=== PATIENT | female | born 1985 | race Caucasian/White ===

== ENCOUNTER 2017-04-12 05:36 | Inpatient (IN) ==
[2017-04-12] MEDS ORDERED: BUTORPHANOL 2 MG/ML VIAL IV PRN (05:46)
[2017-04-12] MEDS ORDERED: ONDANSETRON 4 MG/2 ML VIAL IV PRN ×2 (05:46→11:44)
[2017-04-12] MEDS ORDERED: LACTATED RINGERS 1,000 ML IV SCH (06:00)
[2017-04-12] MEDS ORDERED: OXYTOCIN/LR 20 UNIT/1,000 ML BAG IV SCH (06:00)
[2017-04-12 06:20] LABS: Basophils % 0.5 % (0.0-0.8); Eosinophils # 0.1 10*3/uL (0.0-0.87); Eosinophils % 0.7 % (0.00-10.9); Hemoglobin 11.6 GM/DL (12.0-16.0); Immature Granulocytes % 0.8 %; Immature Granulocytes Absolute 0.07 #; Lymphocytes # 1.3 10*3/uL (1.4-4.0); Lymphocytes % 16.2 % (21.3-54.2); Mean Corpuscular HGB Conc 34.1 GM/DL (32-36); Mean Corpuscular Hemoglobin 30 PG (27-34); Mean Platelet Volume 10.1 FL (9.6-12.0); Monocytes # 0.4 10*3/uL (0.11-0.8); Monocytes % 4.7 % (1.7-12.7); Neutrophils # 6.4 10*3/uL (1.4-7.4); Neutrophils % 77.1 % (38.7-73.9); Platelet Count 164 T/CUMM (130-400); Red Blood Count 3.82 MC/CUMM (3.8-5.5); Red Cell Distribution Width 14.1 % (9.3-17.3); White Blood Count 8.3 T/CUMM (4-12)
--- NOTE | 2017-04-12 06:53 | OB/GYN History & Physical ---
History of Present Illness Chief complaint: at 40 weeks elective induction History of present illness: Ms. Sheppard is a 31 year old female 2 para 1 at 40 weeks estimated gestational age with history of mitral valve replacement who gets SBE prophylaxis with favorable Banerjee score with ultrasound estimated weight of 7 lbs. 11 oz. done last week, confirmed vertex with normal SERA and adequate clinical pelvimetry admitted for elective induction. Home Medications Medication Instructions Recorded Confirmed Type No122/Iron/Folic Acid 1 tablet PO DAILY 03/22/17 04/12/17 History [ Multi Tablet] Allergies Allergy/AdvReac Type Severity Reaction Status Date / Time No Known Allergies Allergy Verified 03/22/17 14:04 12 point system: reviewed and no additional remarkable complaints except as stated Medical,Surgical,& Family Hx - Medical History Cardio: History of: Cardiovascular Problems (PROSTETHIC MITRAL VALVE) Reproductive: No history of: Ectopic , Complication - Surgical History Cardiac Surgeries: Sugical HX of: Cardiac Surgery (MITRAL VALVE) Reproductive Surgeries: Patient denies;: Section - Family History Family History: Reports;: Family Cancer (MGM-BREAST), Family Diabetes (MGM), Family Hypertension (MGM) Denies;: Family Anesthesia Reaction, Family Heart Disease, Family Hematology , Family Psychiatric Problems, Family Stroke, Additional Family History - Social History Smoking Status: Never smoker Frequency of Alcohol Use: None Type of Drug Use: None 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 - Constitutional Vitals: Vital Signs Temp Pulse Resp BP Pulse Ox 04/12/17 05:41 98.3 F 97 H 18 122/81 97 General appearance: normal weight, no acute distress - Head Head exam: Present: normal inspection, normocephalic, atraumatic - Neck Neck exam: Present: normal inspection - Breast Breasts: as per HPI Menstruation: as per HPI - Cardiovascular Cardiovascular exam: Present: regular rate and rhythm - GI/Abdominal GI/Abdominal exam: Present: normal bowel sounds - Extremities Exam Extremities exam: Present: normal inspection, normal capillary refill - Back Exam Back exam: Present: normal inspection - Neurological Exam Neurological exam: Present: alert, oriented X3 - Psychiatric Psychiatric exam: Present: normal affect, normal mood - Skin Skin exam: Present: normal color, warm Assessment and Plan (1) 40 weeks gestation of Status: Acute Current Visit: Yes (2) Elective induction of labor planned Status: Acute Current Visit: Yes (3) History of mitral valve replacement Status: Acute Current Visit: Yes Results - Labs CBC & BMP: 04/12/17 06:08
[2017-04-12] MEDS: AMPICILLIN INJ 2,000 MG in SODIUM CHLORIDE 0.9% 100 ML IV SCH ×3 (07:06→18:38)
[2017-04-12] MEDS ORDERED: FAMOTIDINE 20 MG/2 ML VIAL IV ONE (07:48)
[2017-04-12] MEDS ORDERED: LACTATED RINGERS 1,000 ML IV ONE (07:48)
[2017-04-12] MEDS ORDERED: ePHEDrine 50 MG/ML AMP IV PRN (07:48)
[2017-04-12] MEDS ORDERED: CITRIC ACID/SODIUM CITRATE 30 ML UDCUP PO ONE (07:48)
[2017-04-12] MEDS ORDERED: PROMETHAZINE 25 MG/1 ML VIAL IM ONE (07:48)
[2017-04-12] MEDS ORDERED: hydrOXYzine HCL 25 MG/1 ML VIAL IM PRN (07:48)
[2017-04-12] MEDS ORDERED: fentaNYL 2 MCG/ROPIV 0.2% EPID 150 ML EPIDURAL SCH (07:48)
[2017-04-12] MEDS ORDERED: diphenhydrAMINE 50 MG/1 ML VIAL IV PRN (07:48)
[2017-04-12] MEDS ORDERED: ALBUTEROL 2.5 MG/3 ML NEB RESP TX ONE (08:51)
[2017-04-12] MEDS ORDERED: FUROSEMIDE 40 MG/4 ML VIAL IV ONE ×2 (09:03→20:57)
--- NOTE | 2017-04-12 09:33 | XRay Report ---
Exam: XR chest 1V portable Date: 04/12/2017 8:58 AM Indication: Shortness of breath wheezing Comparison: None Technical: AP portable Findings: Cardiac valve replacement surgical changes are present. Atelectatic change present with pleural diaphragmatic reaction the right base and tiny low volume effusions suspected. Oxygen tubing superimposes exam. No pneumothorax. Heart is normal in size. Mild dextroscoliotic curve Impression: 1. Status post valve replacement surgical changes 2. Low volume effusions and pleural diaphragmatic reaction in the right base PROCEDURE INTERPRETED AT [facility] [place] DEPARTMENT OF RADIOLOGY Final Report Signed by: Dr. Nate Gonzalez
[2017-04-12] MEDS ORDERED: OXYTOCIN 40 UNIT in LACTATED RINGERS 1,000 ML IV ONE (10:00)
[2017-04-12] MEDS ORDERED: oxyCODONE/ACETAMINOPHEN 5-325 MG TABLET PO PRN ×2 (11:44)
[2017-04-12] MEDS ORDERED: LANOLIN 50% CREAM 0.3 OZ TUBE TOP PRN (11:44)
[2017-04-12] MEDS ORDERED: HYDROCORTISONE 2.5% RECTAL CREAM 30 GM TUBE TOP PRN (11:44)
[2017-04-12] MEDS ORDERED: ACETAMINOPHEN 325 MG TABLET PO PRN (11:44)
[2017-04-12] MEDS ORDERED: BISACODYL 10 MG SUPP RECTAL PRN (11:44)
[2017-04-12] MEDS ORDERED: RHO(D) IMMUNE GLOBULIN 300 MCG SYRINGE IM ONE (11:44)
[2017-04-12] MEDS ORDERED: MEASLES/MUMPS/RUBELLA VACCINE 0.5 ML VIAL SUBCUT ONE (11:44)
[2017-04-12] MEDS ORDERED: BENZOCAINE 20%/MENTHOL 0.5% SPRAY 56 GM CAN TOP PRN (11:44)
[2017-04-12] MEDS ORDERED: DIPH/TET/ACEL PERT BOOSTER VACCINE 0.5 ML VIAL IM ONE (11:44)
[2017-04-12] MEDS ORDERED: WITCH HAZEL PADS 100/JAR TOP PRN (11:44)
--- NOTE | 2017-04-12 11:44 | OB/GYN Progress Note ---
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 Painting dictating vaginal delivery And in LDR environment under sterile conditions, the patient progressed to completely dilated. She was allowed to push and under [epidural] anesthesia had a normal spontaneous vaginal delivery of a live born [male] unweighed Apgars pending over a first-degree midline tear. The 's nose and oropharynx were bulb and DeLee suctioned, and the infant had spontaneous cry after delivery. The cord was doubly clamped and cut and the infant was handed over to the pediatric team for care. Cord blood was obtained the placenta delivered spontaneously intact and IV Pitocin was done. There were no cervical tears. There were no periurethral tears. Estimated blood loss was 250 mL. First degree midline tear was repaired with 2-0 Monocryl suture in usual fashion under epidural anesthesia without complication there were no complications. The bladder was emptied using a catheter prior to delivery. All sponge needle and instrument counts were correct -3 at the end of the delivery. The was taken to nursery in stable condition During the course the patient's labor and following her bolus for epidural patient began having coughing spells and on auscultation was noted to have bilateral rales. Lasix was ordered and a shielded abdomen PA chest x-ray. Pulmonary medicine was consulted. Dr. Haq is also been consulted and a cardiac echocardiogram is been ordered. 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
--- NOTE | 2017-04-12 13:25 | Event Note ---
Tiffany is 31 years old and is 40 weeks and came in for the delivery. She has had a previous mitral valve replacement in the past but has not been having any breathing problems. This morning she was a little short of breath and coughing after getting some fluids. She was given some Lasix and diuresed well. She had her delivery without any problems. She is feeling much better now. She is not having any shortness of breath at all. Her lungs sound clear now. At this point she is quite stable. I doubt she will have any further problems but I will be available as needed. Thanks
--- NOTE | 2017-04-12 14:09 | ECHO Report ---
Tiffany hSeppard Exam Date: 04/12/2017 11:24 Referring Physician: Technologist: Nancy Baker RDCS Age: 31 Ht (in): 64 Wt (lb): 160 Gender: F Exam Location: [facility] Echo Indications: 40 week gestation, hx MVR 2007 BP: 121 / 80 HR: 74 Rhythm: Sinus Technical Quality: Fair IMPRESSIONS Normal left ventricular cavity size. Left ventricular ejection fraction is estimated at 60 %.Septal hypokinesis. Normal right ventricular size and systolic function. The right atrium is normal in size. Moderately increased left atrial size. Prosthetic mitral valve mean gradient is 18 mmHg at a heart rate of 74 bpm. Calculated MVA .98cm 2,consistent with severe prosthetic mitral valve stenosis. Morphologically normal aortic valve without significant sclerosis or stenosis. No aortic valve regurgitation. Mild tricuspid valve regurgitation. PAP40 mmHG. There is no pulmonic regurgitation. Normal pericardium without effusion. Normal ascending aorta dimension. MEASUREMENTS (Male / Female) Normal Values 2D ECHO LV Diastolic Diameter PLAX 4.2 cm 4.2 - 5.9 / 3.9 - 5.3 cm LV Systolic Diameter PLAX 2.5 cm LV Fractional Shortening PLAX 40.8 % IVS Diastolic Thickness 0.8 cm 0.6 - 1.0 / 0.6 - 0.9 cm LVPW Diastolic Thickness 0.8 cm 0.6 - 1.0 / 0.6 - 0.9 cm RV Internal Dim ED PLAX 2.1 cm Aortic Root Diameter 2.7 cm LA Systolic Diameter LX 3.7 cm 3.0 - 4.0 / 2.7 - 3.8 cm DOPPLER TR Peak Velocity 262.0 cm/s TR Peak Gradient 27.5 mmHg FINDINGS Left Ventricle Normal left ventricular cavity size. Normal left ventricular wall thickness. Left ventricular ejection fraction is estimated at 60 %. Right Ventricle Normal right ventricular size and systolic function. Right Atrium The right atrium is normal in size. Left Atrium Moderately increased left atrial size. Mitral Valve Prosthetic mitral valve mean gradient is 18 mmHg at a heart rate of 74 bpm.V max2.8 m/s. Calculated MVA .98cm 2,consistent with severe prosthetic mitral valve stenosis.Trivial MR Aortic Valve Morphologically normal aortic valve without significant sclerosis or stenosis. No aortic valve regurgitation. Tricuspid Valve Morphologically normal tricuspid valve. Mild tricuspid valve regurgitation. PAP40 mmHG. Pulmonic Valve Morphologically normal pulmonic valve without significant stenosis. There is no pulmonic regurgitation. Pericardium Normal pericardium without effusion. Aorta Normal ascending aorta dimension. Prosper Gallegos (Electronically Signed) Final Date: 12 April 2017 14:08
--- NOTE | 2017-04-12 16:45 | Cardiology Consult Note ---
Assessment and Plan (1) Shortness of breath Status: Acute Assessment and plan: This is improved with diuresis, and clinically her lung exam is improved. It may be somewhat iatrogenic with IV fluid administration, although we will need to reassess her valvular function and overall cardiac function. Current Visit: Yes (2) 40 weeks gestation of Status: Resolved Current Visit: Yes (3) Elective induction of labor planned Status: Resolved Current Visit: Yes (4) History of mitral valve replacement Status: Chronic Current Visit: Yes History of Present Illness - Data of Consult Patient: new to practice Consult date: 04/12/17 Requesting Physician: Jose Painting - Consult Narrative Reason for consult: SOB History of present illness: Ms. Sheppard is a 31 year old female with a history of bioprosthetic mitral valve replacement in 2008 secondary to severe mitral regurgitation, presumably from a mitral valve prolapse. She has [facility], and received the bioprosthetic valve with anticipation of childbearing. She was admitted to the hospital for planned induction of her second child, which overall occurred uneventfully. The baby is in good health. She was administered copious IV fluids in association with her epidural, and she had worsening shortness of breath. She is observed as having had crackles in her bilateral lungs, but she has been diuresed by the time I have examined her. She does acknowledge over the preceding few weeks she was having slightly worsening dyspnea. She has not been expressing any peripheral edema. She does not experience chest pain. CC: Criss Scott - Home Medications and Allergies Home Medications: Home Medications Medication Instructions Recorded Confirmed Type No122/Iron/Folic Acid 1 tablet PO DAILY 03/22/17 04/12/17 History [ Multi Tablet] Allergies/Adverse Reactions: Allergies Allergy/AdvReac Type Severity Reaction Status Date / Time No Known Allergies Allergy Verified 03/22/17 14:04 12 point system: reviewed and no additional remarkable complaints except as stated Medical,Surgical,& Family Hx - Medical History Cardio: History of: Valvular Heart Disease, Cardiovascular Problems ( BIOPROSTETHIC MITRAL VALVE 2007) Reproductive: No history of: Ectopic , Complication - Surgical History Cardiac Surgeries: Sugical HX of: Cardiac Surgery (MITRAL VALVE REPLACEMENT) Reproductive Surgeries: Patient denies;: Section - Family History Family History: Reports;: Family Cancer (MGM-BREAST), Family Diabetes (MGM), Family Hypertension (MGM) Denies;: Family Anesthesia Reaction, Family Heart Disease, Family Hematology , Family Psychiatric Problems, Family Stroke, Additional Family History - Social History Smoking Status: Never smoker Frequency of Alcohol Use: None Type of Drug Use: None Marital Status: Lives With:: Spouse Functional capacity: independent ambulation Physical Examination Vital Signs Temp Pulse Resp BP Pulse Ox 98.3 F 97 H 18 122/81 97 04/12/17 05:41 04/12/17 05:41 04/12/17 05:41 04/12/17 05:41 04/12/17 05:41 General: Present: Appears Well, No Apparent Distress HEENT: Present: Normocephaly. Absent: Jaundice, Pallor Neck: Present: Supple Neck, Midline Trachea, No JVD/HJR, No Bruit, No Lymphadenopathy, No Thyromegaly. Absent: Thyromegaly Cardiac: Present: Reg Rate and Rhythm, No Murmur Lungs: Present: Normal Exam, No Wheeze, Rales, Rhonchi Neuro: Present: Coordination Normal, Other (Decreased motor and sensory function in her bilateral extremities in the setting of epidural placement). Absent: Resting Tremor, Essential Tremor Abdomen: Present: Soft, No Masses, No Pulsations/Bruits, Distended () , Non-Tender. Absent: Tender Skin: Present: Clear. Absent: Rash, Suspicious Lesions Musculoskeletal: Present: Normal Range of Motion. Absent: Erythematous Joints Gait: Present: Other (Unable to ambulate due to epidural) Extremities: Present: No Clubbing, No Cyanosis, No Edema Result/EKG - Labs CBC & BMP: 04/12/17 06:08 Lab Results: I have reviewed the past 24 hour labs Labs: Laboratory Results - last 24 hr 04/12/17 04/12/17 04/12/17 06:08 06:08 06:08 WBC 8.3 RBC 3.82 Hgb 11.6 L Hct 34.0 L MCV 89.0 MCH 30 MCHC 34.1 RDW 14.1 Plt Count 164 MPV 10.1 Neut % (Auto) 77.1 H Lymph % (Auto) 16.2 L [place] % (Auto) 4.7 Eos % (Auto) 0.7 Baso % (Auto) 0.5 Neut # (Auto) 6.4 Lymph # (Auto) 1.3 L [place] # (Auto) 0.4 Eos # (Auto) 0.1 Baso # (Auto) 0.0 Immature Gran % 0.8 Nucleated RBC % 0.0 Immature Gran # 0.07 Nucleated RBCs # 0.00 Treponema pallidum IgG Nonreactive Blood Type O POSITIVE Antibody Screen Negative Quality Measures - VTE Contraindication to Pharmacological VTE Prophylaxis: Clinical assessment deems Pt at low risk, no prophalaxis needed Specialty Discharge - Follow Up or Referrals
--- NOTE | 2017-04-12 17:50 | OB/GYN Progress Note ---
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 She is resting comfortably. Dr. Miller has been consulted and seen the patient is aware of her echo report. We will continue present management and transfer to [facility] a.m. 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
--- NOTE | 2017-04-12 18:13 | XRay Report ---
XR chest 2V Date: 04/12/2017 5:42 PM History: Shortness of breath Comparison: 04/12/2017 Technique: PA and lateral chest Findings: The heart is minimally enlarged with prior cardiac valve replacement. Minimal reduction in the diffuse parenchymal findings in the lungs with smaller pleural effusions. Localized eventration of the right hemidiaphragm. Minimal dextroscoliosis with stable mediastinum. Impression: Prior cardiac valve replacement with minimally improved pulmonary edema/pneumonitis with smaller pleural effusions. Probable localized eventration of the right hemidiaphragm with atelectasis at the lung bases. Follow-up chest x-ray recommended. PROCEDURE INTERPRETED AT [facility] DEPARTMENT OF RADIOLOGY Final Report Signed by: Dr. Mee Casey
[2017-04-12] MEDS: IBUPROFEN 800 MG TABLET PO PRN (20:01)
[2017-04-12] MEDS: ALBUTEROL 2.5 MG/3 ML NEB RESP TX PRN (21:00)
[2017-04-12] MEDS: DOCUSATE SODIUM 100 MG CAPSULE PO SCH (21:25)
[2017-04-13] MEDS: AMPICILLIN INJ 2,000 MG in SODIUM CHLORIDE 0.9% 100 ML IV SCH ×3 (00:25→13:19)
[2017-04-13] MEDS: IBUPROFEN 800 MG TABLET PO PRN ×2 (03:40→11:52)
[2017-04-13 05:35] LABS: Basophils # 0.1 10*3/uL (0.0-0.2); Basophils % 0.5 % (0.0-0.8); Eosinophils # 0.1 10*3/uL (0.0-0.87); Eosinophils % 0.5 % (0.00-10.9); Hematocrit 30.9 VOL% (35.7-47.0); Hemoglobin 10.5 GM/DL (12.0-16.0); Immature Granulocytes % 0.5 %; Immature Granulocytes Absolute 0.05 #; Lymphocytes # 1.6 10*3/uL (1.4-4.0); Lymphocytes % 15.9 % (21.3-54.2); Mean Corpuscular Hemoglobin 30 PG (27-34); Mean Corpuscular Volume 89.3 FL (87-102); Mean Platelet Volume 10.8 FL (9.6-12.0); Monocytes # 0.4 10*3/uL (0.11-0.8); Neutrophils # 7.7 10*3/uL (1.4-7.4); Neutrophils % 78.6 % (38.7-73.9); Platelet Count 127 T/CUMM (130-400); Red Blood Count 3.46 MC/CUMM (3.8-5.5); Red Cell Distribution Width 14.1 % (9.3-17.3); White Blood Count 9.8 T/CUMM (4-12)
[2017-04-13 05:57] LABS: Hypochromasia 1+; Platelet Estimate Normal
[2017-04-13] MEDS: ALBUTEROL 2.5 MG/3 ML NEB RESP TX PRN (06:32)
--- NOTE | 2017-04-13 06:57 | OB/GYN Progress Note ---
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 She was volume restricted and given Lasix and breathing treatments due to shortness of breath and increased work of breathing and orthopnea. Last night patient began having some additional shortness of breath Dr. Hernandes was called and she received another dose of Lasix and breathing treatment. This morning patient states she does feel better however on auscultation she still does have some crackles bilaterally worse in the bases of the lungs. She put out 2500 cc last night. Will order another dose of Lasix this morning. Dr. Cecilio Miller will be seeing the patient this morning in consultation. We will continue her present management as is and wait for their recommendations Exam GEOPHYSICS PROFESSOR - Constitutional Vitals: Vital Signs Temp Pulse Pulse Resp BP Pulse Ox Pulse Ox 04/13/17 06:40 68 100 04/13/17 06:32 68 20 100 04/13/17 04:00 18 04/13/17 03:44 97.3 F L 81 19 121/78 96 04/13/17 03:40 97.3 F L 04/13/17 00:00 97 F L 90 18 94/55 92 L 04/12/17 21:06 110 H 20 99 04/12/17 21:00 110 H 19 99 04/12/17 20:00 18 04/12/17 19:39 97.7 F 84 18 133/85 98 04/12/17 14:00 20 04/12/17 09:07 115 H 20 99 04/12/17 09:00 112 H 18 93 L 04/12/17 07:14 97.8 F 65 17 121/80 Results - Labs CBC & BMP: 04/13/17 04:48
[2017-04-13] MEDS ORDERED: FUROSEMIDE 40 MG/4 ML VIAL IV ONE (07:01)
--- NOTE | 2017-04-13 08:31 | Event Note ---
She is comfortable this morning off of oxygen but did require some Lasix last night. She diuresed quite well. She is tolerating her bronchodilator therapy. She still has some slight crackles in the bases and will get 1 more dose of Lasix. Her volume status should be close to baseline now. I do not think she will have further problems with her breathing.
[2017-04-13] MEDS: DOCUSATE SODIUM 100 MG CAPSULE PO SCH ×2 (09:06→21:45)
[2017-04-13] MEDS: MULTIVITAMIN (PRENATAL) TABLET PO SCH (09:06)
--- NOTE | 2017-04-13 09:06 | EKG Report ---
Stationary ECG Study [facility] Test Date: 04/13/2017 8:28:13 AM Pat Name: KRISTAL STOKES Department: Room: [facility] Gender: F Painting Manager: EDWARD : 1985 Requested by: Harmony Miller Order Number: [id number] Reading MD: CHERYL MOTLEY Intervals [place] Rate: 101 P: 75 WI: 135 QRS: 55 QRSD: 86 T: 76 QT: 330 QTc: 388 Interpretive Statements SINUS TACHYCARDIA Electronically Signed On 04-13-17 17:52:02 CDT by CHERYL MOTLEY [email or web address]
--- NOTE | 2017-04-13 11:50 | Anesthesia Post-Op ---
Anesthesia Post OP - Post Ansesthetic Evaluation Patient seen in post op: Yes Resp: within normal limits CV: within normal limits Mental: within normal limits Temp: within normal limits [id number]: within normal limits Nausea and Vomiting: within normal limits Pain: within normal limits
[2017-04-13] MEDS: ONDANSETRON ODT 4 MG TABLET PO PRN (16:21)
--- NOTE | 2017-04-13 18:41 | Cardiology Progress Note ---
Assessment and Plan (1) Shortness of breath Status: Acute Assessment and plan: This is improved with diuresis, and clinically her lung exam is improved. It may be somewhat iatrogenic with IV fluid administration, although we will need to reassess her valvular function and overall cardiac function. Current Visit: Yes (2) 40 weeks gestation of Status: Resolved Current Visit: Yes (3) Elective induction of labor planned Status: Resolved Current Visit: Yes (4) History of mitral valve replacement Status: Chronic Current Visit: Yes Cardiology - PN: Subj Interval history: She did have some more shortness of breath and pulmonary edema yesterday evening , she responded again to IV Lasix. Today she is feeling somewhat better, denies edema or shortness of breath at this time. Impression and plan: 1. Valvular heart disease-she has a history of mitral valve replacement and disease after a failed attempt at repair), and appears that this valve is now stenotic. She is having some heart failure associated with this and we will continue to treat her medically for now. I am hoping that we can get her through this initial time as she recovers from her delivery and then can make plans as an outpatient to further evaluate her valve and consider surgical repair replacement. 2. Status post induction of vaginal delivery-she is recovering well from this. Exam (Progress Note) - Constitutional Vitals: Period Temp Pulse Resp BP Sys/Morales Pulse Ox Last 24 Hr 97 F-97.7 F 68-110 18-20 94-133/55-85 92-100 Exam: General appearance: normal weight, no acute distress - Head Head exam: Present: normal inspection, normocephalic, atraumatic. Absent: hematoma, laceration - Eye Eye exam: Present: EOMI. Absent: conjunctival injection, nystagmus, periorbital swelling, scleral icterus, laceration to eyelids Pupils: Present: PERRL. Absent: constricted, dilated, fixed, irregular, unequal - ENT ENT exam: Present: normal exam, normal external ear exam - Neck Neck exam: Present: normal inspection. Absent: lymphadenopathy, meningismus, tenderness, thyromegaly - Respiratory Respiratory exam: Present: clear to auscultation bilaterally. Absent: accessory muscle use, chest wall tenderness - Cardiovascular Cardiovascular exam: Present: regular rate and rhythm. Absent: carotid bruit, gallop, JVD, rubs - GI/Abdominal GI/Abdominal exam: Present: abdomen with normal bowel sounds. - Extremities Exam Extremities exam: Present: normal inspection, normal capillary refill. Absent: calf tenderness, edema - Back Exam Back exam: Present: normal inspection. Absent: muscle spasm, vertebral tenderness - Neurological Exam Neurological exam: Present: alert, oriented X3, grossly intact without resting or intention tremor - Psychiatric Psychiatric exam: Present: normal affect, normal mood - Skin Skin exam: Present: normal color, warm, dry, intact. Absent: cyanosis, diaphoretic, rash, urticaria Result/EKG - Labs CBC & BMP: 04/13/17 04:48 Lab Results: I have reviewed the past 24 hour labs Labs: Laboratory Results - last 24 hr 04/13/17 04:48 WBC 9.8 RBC 3.46 L Hgb 10.5 L Hct 30.9 L MCV 89.3 MCH 30 MCHC 34.0 RDW 14.1 Plt Count 127 L D MPV 10.8 Neut % (Auto) 78.6 H Lymph % (Auto) 15.9 L [place] % (Auto) 4.0 Eos % (Auto) 0.5 Baso % (Auto) 0.5 Neut # (Auto) 7.7 H Lymph # (Auto) 1.6 [place] # (Auto) 0.4 Eos # (Auto) 0.1 Baso # (Auto) 0.1 Immature Gran % 0.5 Nucleated RBC % 0.0 Immature Gran # 0.05 Nucleated RBCs # 0.00 Platelet Estimate Normal Hypochromasia 1+ Morphology Comment Quality Measures - VTE Contraindication to Pharmacological VTE Prophylaxis: Clinical assessment deems Pt at low risk, no prophalaxis needed Specialty Discharge - Follow Up or Referrals
[2017-04-13] MEDS: FUROSEMIDE 40 MG TABLET PO SCH (21:50)
[2017-04-14] MEDS: IBUPROFEN 800 MG TABLET PO PRN ×2 (02:02→11:52)
[2017-04-14] MEDS: ONDANSETRON ODT 4 MG TABLET PO PRN (02:17)
[2017-04-14 06:25] LABS: Calcium 8.8 MG/DL (8.5-10.1); Osmolality,Calculated 274.5 MOS/KG (273-304)
[2017-04-14 07:38] VITALS: BP 127/77
--- NOTE | 2017-04-14 08:14 | Discharge Summary ---
Hospital Course - Hospital Course Hospital Course: patient did well. She received several doses of Lasix and had a good diuresis and resolution of her symptoms. Dr. Miller and Cecilio were consulted intrapartum and ending their approval for discharge we will discharge patient today with follow-up in my office in 3 weeks Diagnosis - Discharge Diagnosis (1) 40 weeks gestation of Status: Resolved (2) Elective induction of labor planned Status: Resolved (3) History of mitral valve replacement Status: Chronic Specialty Discharge - Follow Up or Referrals Discharge Plan - Discharge Data Disposition: Disch To Home/Self Care Condition at Discharge: Stable Discharge Diet: regular diet Activity: increase activity as tolerated, other (Pelvic rest) Hygiene: may shower Weight Bearing at Discharge: full weight bearing Driving: no restrictions Contact your physician if you experience:: fever over 101, Difficulty voiding, Redness or swelling, Nausea/Vomiting, Shortness of breath, Bleeding, pain uncontrolled by pain medications - Discharge Medications New Ibuprofen Tab [Motrin Tab] 800 mg PO Q6H PRN #60 tablet PRN Reason: Pain Moderate (4-7) Multivitamin () [ Vitamin] 1 tablet PO DAILY tablet Discontinued No122/Iron/Folic Acid [ Multi Tablet] 1 tablet PO DAILY - Follow Up or Referral Follow Up: Jose Painting MD [Physician] - 2 Weeks - Forms/Instructions Instructions: Mitral Stenosis (GEN), Low Sodium Diet (GEN) Exam - Constitutional Vitals: Period Temp Pulse Resp BP Sys/Morales Pulse Ox Last 24 Hr 97.1 F-98.2 F 69-92 18-20 114-128/72-77 82-97 Discharge Results Procedures and tests throughout hospitalization: Pending Orders 04/15/17 04:00 Basic Metabolic Panel w/Mg IN AM 04/16/17 04:00 Basic Metabolic Panel w/Mg IN AM Labs on day of discharge: Labs from last 24 hours 04/14/17 05:37 Sodium 139 Potassium 4.0 Chloride 103 Carbon Dioxide 27 Anion Gap 13.0 BUN 11 Creatinine 0.90 GFR Calculation 87 BUN/Creatinine Ratio 12.00 Glucose 81 Calculated Osmolality 274.5 Calcium 8.8 Magnesium 2.0 DS: Provider Date of admission: 04/12/17 05:46 Primary care physician: . No PCP Attending physician on admission: Criss Scott Consults: 04/12/17 05:46 Consult to Anesthesiology [CONS] Routine Consulting Provider: Reason for Anesthesiology: Epidural Consult Comment: Epidural for pain managment 04/12/17 09:12 Consult to Pulmonary Rehabilitation [CONS] Routine Reason for Pulmonary Rehabilitation: Other Consult Comment: HX OF MITRAL VAVLE REPLACEMENT. FLUID OVERLOAD. 04/12/17 11:43 Consult to Physician [CONS] Routine Comment: Consulting Provider: Harmony Miller Consulting Provider Notified: Yes When should Consulting Provider be notified: Now Consult to Specialist Group: Cardiology When should Consulting Provider be notified: Now Person Notified: DR FELIZ WAS CALLED VIA DR PAINTING [facility] 04/12/17 11:44 Consult to Correctional Agency Director [CONS] Routine Consult Correctional Agency Director: Breast Feeding Discharging clinician: Criss Scott Expected date of discharge: 04/14/17
[2017-04-14] MEDS: FUROSEMIDE 40 MG TABLET PO SCH (08:46)
[2017-04-14] MEDS: MULTIVITAMIN (PRENATAL) TABLET PO SCH (08:46)
[2017-04-14] MEDS: DOCUSATE SODIUM 100 MG CAPSULE PO SCH (08:46)
--- NOTE | 2017-04-14 08:56 | Cardiology Progress Note ---
Assessment and Plan (1) Shortness of breath Status: Acute Assessment and plan: This is improved with diuresis, and clinically her lung exam is improved. It may be somewhat iatrogenic with IV fluid administration, although we will need to reassess her valvular function and overall cardiac function. Current Visit: Yes (2) 40 weeks gestation of Status: Resolved Current Visit: Yes (3) Elective induction of labor planned Status: Resolved Current Visit: Yes (4) History of mitral valve replacement Status: Chronic Current Visit: Yes Exam (Progress Note) - Constitutional Vitals: Period Temp Pulse Resp BP Sys/Morales Pulse Ox Last 24 Hr 97.1 F-98.2 F 69-92 18-20 114-128/72-77 82-97 Result/EKG - Labs CBC & BMP: 04/13/17 04:48 04/14/17 05:37 Labs: Laboratory Results - last 24 hr 04/14/17 05:37 Sodium 139 Potassium 4.0 Chloride 103 Carbon Dioxide 27 Anion Gap 13.0 BUN 11 Creatinine 0.90 GFR Calculation 87 BUN/Creatinine Ratio 12.00 Glucose 81 Calculated Osmolality 274.5 Calcium 8.8 Magnesium 2.0 Quality Measures - VTE Contraindication to Pharmacological VTE Prophylaxis: Clinical assessment deems Pt at low risk, no prophalaxis needed Specialty Discharge - Follow Up or Referrals Follow up with: Jose Painting MD [Physician] - 2 Weeks Harmony Miller MD [Physician] - 1 Month
--- NOTE | 2017-04-14 09:16 | Event Note ---
Tiffany had a good night and no further shortness of breath. Her lungs are clear now. She really has no pulmonary disease. She can go home from my standpoint.
== END 2017-04-14 15:50 | disposition home or self-care (01) | DRG 774 ==
LOC: N.LDOUT 05:36 → N.LD 05:39 → N.OB 04-13 22:20
PROVIDERS: ADMIT Specialist; ATTEND Specialist

== ENCOUNTER 2017-08-26 17:00 | Inpatient (IN) ==
[2017-08-26] MEDS ORDERED: diphenhydrAMINE CAP 25 MG CAPSULE PO PRN (17:59)
[2017-08-26] MEDS ORDERED: ZALEPLON 5 MG CAPSULE PO PRN (17:59)
[2017-08-26] MEDS ORDERED: DOCUSATE SODIUM 100 MG CAPSULE PO PRN (17:59)
[2017-08-26] MEDS ORDERED: MAGNESIUM SULF RIDER 4 GM in PREMIX 1 EACH IV PRN (17:59)
[2017-08-26] MEDS ORDERED: MAGNESIUM SULF RIDER 2 GM in PREMIX 1 EACH IV PRN (17:59)
[2017-08-26] MEDS ORDERED: MORPHINE 2 MG/1 ML SYRINGE IV PRN (17:59)
[2017-08-26] MEDS ORDERED: FUROSEMIDE 40 MG/4 ML VIAL IV ONE (18:04)
[2017-08-26 18:34] LABS: Basophils % 0.5 % (0.0-0.8); Hematocrit 38.3 VOL% (35.7-47.0); Hemoglobin 13.3 GM/DL (12.0-16.0); Immature Granulocytes % 0.3 %; Immature Granulocytes Absolute 0.02 #; Lymphocytes # 0.4 10*3/uL (1.4-4.0); Lymphocytes % 6.9 % (21.3-54.2); Mean Corpuscular HGB Conc 34.7 GM/DL (32-36); Mean Corpuscular Hemoglobin 31 PG (27-34); Mean Corpuscular Volume 90.3 FL (87-102); Monocytes # 0.2 10*3/uL (0.11-0.8); Monocytes % 3.1 % (1.7-12.7); Neutrophils # 5.5 10*3/uL (1.4-7.4); Neutrophils % 89.2 % (38.7-73.9); Platelet Count 200 T/CUMM (130-400); Red Blood Count 4.24 MC/CUMM (3.8-5.5); Red Cell Distribution Width 13.1 % (9.3-17.3); White Blood Count 6.2 T/CUMM (4-12)
[2017-08-26] MEDS: ENOXAPARIN 40 MG/0.4 ML SYRINGE SUBCUT SCH (18:54)
[2017-08-26 18:55] LABS: Albumin 3.6 G/DL (3.4-5.0); Bilirubin,Total 0.6 MG/DL (0.2-1.0); Calcium 8.7 MG/DL (8.5-10.1); Osmolality,Calculated 268.2 MOS/KG (273-304); Potassium 4.1 MMOL/L (3.5-5.1)
[2017-08-26 19:02] LABS: Magnesium 1.8 MG/DL (1.8-2.4); Thyroid Stimulating Hormone 1.14 uIU/ml (0.358-3.74)
[2017-08-26] MEDS: ACETAMINOPHEN 325 MG TABLET PO PRN (19:29)
[2017-08-26 20:32] LABS: Apearance,Urine CLEAR (Clear); Bilirubin,Urine Negative (Negative); Blood, Urine Negative (Negative); Glucose,Urine (UA) Negative (Negative); Ketones,Urine Negative (Negative); Nitrite,Urine Negative (Negative); Protein,Urine Negative; RBC,Urine <1 /HPF (0-4); Squamous Epithelial Cell,Urine Occasional /HPF (0-10); Urine Color Yellow (Yellow); Urine Specific Gravity 1.004 (1.001-1.035); Urine Urobilinogen < 2.0 EU/DL (0.2-1.0); WBC,Urine <1 /HPF (0-6)
[2017-08-26] MEDS: LEVOFLOXACIN INJ 750 MG in PREMIX 1 EACH IV SCH (21:55)
[2017-08-27 04:20] LABS: Basophils % 0.9 % (0.0-0.8); Eosinophils % 0.5 % (0.00-10.9); Hematocrit 34.9 VOL% (35.7-47.0); Immature Granulocytes % 0.2 %; Immature Granulocytes Absolute 0.01 #; Lymphocytes # 0.7 10*3/uL (1.4-4.0); Lymphocytes % 16.6 % (21.3-54.2); Mean Corpuscular HGB Conc 34.4 GM/DL (32-36); Mean Corpuscular Hemoglobin 31 PG (27-34); Mean Corpuscular Volume 90.4 FL (87-102); Mean Platelet Volume 10.1 FL (9.6-12.0); Monocytes # 0.3 10*3/uL (0.11-0.8); Monocytes % 6.7 % (1.7-12.7); Neutrophils # 3.3 10*3/uL (1.4-7.4); Neutrophils % 75.1 % (38.7-73.9); Platelet Count 181 T/CUMM (130-400); Red Blood Count 3.86 MC/CUMM (3.8-5.5); Red Cell Distribution Width 13.2 % (9.3-17.3); White Blood Count 4.4 T/CUMM (4-12)
[2017-08-27 04:46] LABS: Calcium 8.8 MG/DL (8.5-10.1); Magnesium 2.1 MG/DL (1.8-2.4); Osmolality,Calculated 272.7 MOS/KG (273-304); Potassium 4.2 MMOL/L (3.5-5.1)
[2017-08-27] MEDS: PANTOPRAZOLE 40 MG TABLET PO SCH (08:21)
[2017-08-27] MEDS ORDERED: FUROSEMIDE 40 MG TABLET PO SCH ×2 (09:00→16:00)
[2017-08-27] MEDS ORDERED: FUROSEMIDE 20 MG/2 ML VIAL IV SCH ×3 (10:32→16:00)
[2017-08-27] MEDS: ACETAMINOPHEN 325 MG TABLET PO PRN ×2 (14:54→22:09)
[2017-08-27] MEDS: FUROSEMIDE 40 MG/4 ML VIAL IV SCH (15:03)
[2017-08-27] MEDS: ENOXAPARIN 40 MG/0.4 ML SYRINGE SUBCUT SCH (17:29)
[2017-08-27] MEDS ORDERED: ALBUTEROL/IPRATROPIUM 3 ML NEB RESP TX ONE (21:15)
[2017-08-27] MEDS ORDERED: ALBUTEROL/IPRATROPIUM 3 ML NEB RESP TX PRN ×2 (21:25→23:00)
[2017-08-27] MEDS: LEVOFLOXACIN INJ 750 MG in PREMIX 1 EACH IV SCH (21:55)
[2017-08-28 05:58] LABS: Calcium 8.8 MG/DL (8.5-10.1); Magnesium 2.1 MG/DL (1.8-2.4); Osmolality,Calculated 271.8 MOS/KG (273-304)
[2017-08-28 06:00] LABS: Calcium 8.8 MG/DL (8.5-10.1); Potassium 3.8 MMOL/L (3.5-5.1)
[2017-08-28] MEDS: ALBUTEROL/IPRATROPIUM 3 ML NEB RESP TX SCH ×4 (07:28→20:13)
[2017-08-28] MEDS: FUROSEMIDE 40 MG/4 ML VIAL IV SCH (08:14)
[2017-08-28] MEDS: PANTOPRAZOLE 40 MG TABLET PO SCH (08:15)
[2017-08-28 08:18] LABS: Basophils % 0.8 % (0.0-0.8); Eosinophils % 0.5 % (0.00-10.9); Hematocrit 34.4 VOL% (35.7-47.0); Hemoglobin 12.3 GM/DL (12.0-16.0); Immature Granulocytes % 0.5 %; Immature Granulocytes Absolute 0.02 #; Lymphocytes # 0.8 10*3/uL (1.4-4.0); Mean Corpuscular HGB Conc 35.8 GM/DL (32-36); Mean Corpuscular Hemoglobin 32 PG (27-34); Mean Corpuscular Volume 88.9 FL (87-102); Mean Platelet Volume 10.6 FL (9.6-12.0); Monocytes # 0.2 10*3/uL (0.11-0.8); Monocytes % 6.1 % (1.7-12.7); Neutrophils # 2.7 10*3/uL (1.4-7.4); Neutrophils % 71.1 % (38.7-73.9); Platelet Count 185 T/CUMM (130-400); Red Blood Count 3.87 MC/CUMM (3.8-5.5); Red Cell Distribution Width 12.7 % (9.3-17.3); White Blood Count 3.8 T/CUMM (4-12)
[2017-08-28 08:20] LABS: Basophils % 0.3 % (0.0-0.8); Eosinophils % 0.3 % (0.00-10.9); Hematocrit 38.7 VOL% (35.7-47.0); Hemoglobin 13.3 GM/DL (12.0-16.0); Immature Granulocytes % 0.3 %; Immature Granulocytes Absolute 0.01 #; Lymphocytes # 0.5 10*3/uL (1.4-4.0); Lymphocytes % 13.8 % (21.3-54.2); Mean Corpuscular HGB Conc 34.4 GM/DL (32-36); Mean Corpuscular Hemoglobin 31 PG (27-34); Mean Corpuscular Volume 89.6 FL (87-102); Mean Platelet Volume 9.8 FL (9.6-12.0); Monocytes # 0.2 10*3/uL (0.11-0.8); Monocytes % 5.8 % (1.7-12.7); Neutrophils # 2.6 10*3/uL (1.4-7.4); Neutrophils % 79.5 % (38.7-73.9); Platelet Count 150 T/CUMM (130-400); Red Blood Count 4.32 MC/CUMM (3.8-5.5); Red Cell Distribution Width 12.6 % (9.3-17.3); White Blood Count 3.3 T/CUMM (4-12)
[2017-08-28 08:38] LABS: Band Neutrophils 1 % (0-10); Lymphocytes 22 % (20-55); Segmented Neutrophils 69 % (50-85); Total Cells Counted 100
[2017-08-28 08:39] LABS: Hypochromasia Slight
[2017-08-28 08:40] LABS: Microcytosis Slight; Platelet Estimate Adequate
[2017-08-28 08:44] LABS: Band Neutrophils 2 % (0-10); Hypochromasia 1+; Lymphocytes 12 % (20-55); Segmented Neutrophils 82 % (50-85); Total Cells Counted 100
[2017-08-28 08:45] LABS: Microcytosis 1+; Platelet Estimate Adequate
[2017-08-28] MEDS: NORGESTIMATE ETHINYL ESTRADIOL PO SCH (12:18)
[2017-08-28] MEDS: ACETAMINOPHEN 325 MG TABLET PO PRN ×2 (13:29→23:11)
[2017-08-28] MEDS: CLINDAMYCIN INJ 300 MG in PREMIX 1 EACH IV SCH ×2 (14:34→20:56)
[2017-08-28] MEDS: FUROSEMIDE 20 MG/2 ML VIAL IV SCH (16:12)
[2017-08-28] MEDS: ENOXAPARIN 40 MG/0.4 ML SYRINGE SUBCUT SCH (19:44)
[2017-08-28] MEDS: LEVOFLOXACIN INJ 750 MG in PREMIX 1 EACH IV SCH (21:33)
[2017-08-29 03:55] LABS: Basophils % 0.5 % (0.0-0.8); Eosinophils % 0.3 % (0.00-10.9); Hematocrit 34.7 VOL% (35.7-47.0); Immature Granulocytes % 0.3 %; Immature Granulocytes Absolute 0.01 #; Lymphocytes # 1.1 10*3/uL (1.4-4.0); Mean Corpuscular HGB Conc 34.6 GM/DL (32-36); Mean Corpuscular Hemoglobin 30 PG (27-34); Mean Corpuscular Volume 87.6 FL (87-102); Mean Platelet Volume 10.3 FL (9.6-12.0); Monocytes # 0.3 10*3/uL (0.11-0.8); Monocytes % 6.9 % (1.7-12.7); Neutrophils # 2.4 10*3/uL (1.4-7.4); Platelet Count 195 T/CUMM (130-400); Red Blood Count 3.96 MC/CUMM (3.8-5.5); Red Cell Distribution Width 12.6 % (9.3-17.3); White Blood Count 3.8 T/CUMM (4-12)
[2017-08-29 04:39] LABS: Calcium 8.9 MG/DL (8.5-10.1); Magnesium 2.1 MG/DL (1.8-2.4)
[2017-08-29 04:40] LABS: Osmolality,Calculated 263.4 MOS/KG (273-304); Potassium 3.7 MMOL/L (3.5-5.1)
[2017-08-29 05:30] LABS: Elliptocytes Few; Giant Platelets Few; Hypochromasia 1+; Platelet Estimate Adequate
[2017-08-29 05:31] LABS: Microcytosis Slight
[2017-08-29] MEDS: CLINDAMYCIN INJ 300 MG in PREMIX 1 EACH IV SCH ×3 (05:38→21:11)
[2017-08-29] MEDS: ALBUTEROL/IPRATROPIUM 3 ML NEB RESP TX SCH ×4 (07:04→19:10)
[2017-08-29] MEDS ORDERED: ONDANSETRON 4 MG/2 ML VIAL IV PRN (08:21)
[2017-08-29] MEDS: PANTOPRAZOLE 40 MG TABLET PO SCH (09:42)
[2017-08-29] MEDS: NORGESTIMATE ETHINYL ESTRADIOL PO SCH (09:42)
[2017-08-29] MEDS: FUROSEMIDE 20 MG/2 ML VIAL IV SCH (09:43)
[2017-08-29] MEDS: ENOXAPARIN 40 MG/0.4 ML SYRINGE SUBCUT SCH (17:38)
[2017-08-29] MEDS: LEVOFLOXACIN INJ 750 MG in PREMIX 1 EACH IV SCH (21:45)
[2017-08-29] MEDS: ACETAMINOPHEN 325 MG TABLET PO PRN (23:36)
[2017-08-30] MEDS: CLINDAMYCIN INJ 300 MG in PREMIX 1 EACH IV SCH (04:33)
[2017-08-30 05:31] LABS: Basophils % 0.6 % (0.0-0.8); Eosinophils # 0.2 10*3/uL (0.0-0.87); Eosinophils % 5.7 % (0.00-10.9); Hematocrit 31.9 VOL% (35.7-47.0); Hemoglobin 11.1 GM/DL (12.0-16.0); Immature Granulocytes % 0.3 %; Immature Granulocytes Absolute 0.01 #; Lymphocytes # 1.4 10*3/uL (1.4-4.0); Lymphocytes % 40.1 % (21.3-54.2); Mean Corpuscular HGB Conc 34.8 GM/DL (32-36); Mean Corpuscular Hemoglobin 30 PG (27-34); Mean Corpuscular Volume 86.7 FL (87-102); Mean Platelet Volume 10.5 FL (9.6-12.0); Monocytes # 0.3 10*3/uL (0.11-0.8); Monocytes % 7.7 % (1.7-12.7); Neutrophils # 1.6 10*3/uL (1.4-7.4); Neutrophils % 45.6 % (38.7-73.9); Platelet Count 197 T/CUMM (130-400); Red Blood Count 3.68 MC/CUMM (3.8-5.5); Red Cell Distribution Width 12.5 % (9.3-17.3); White Blood Count 3.5 T/CUMM (4-12)
[2017-08-30 05:53] LABS: Calcium 8.8 MG/DL (8.5-10.1); Magnesium 2.1 MG/DL (1.8-2.4); Osmolality,Calculated 261.7 MOS/KG (273-304); Potassium 4.4 MMOL/L (3.5-5.1)
[2017-08-30] MEDS: ALBUTEROL/IPRATROPIUM 3 ML NEB RESP TX SCH ×2 (07:42→10:28)
[2017-08-30] MEDS: PANTOPRAZOLE 40 MG TABLET PO SCH (08:53)
[2017-08-30] MEDS: NORGESTIMATE ETHINYL ESTRADIOL PO SCH (08:53)
[2017-08-30] MEDS ORDERED: FUROSEMIDE 20 MG TABLET PO SCH (09:00)
[2017-08-30] MEDS ORDERED: CEFUROXIME 500 MG TABLET PO SCH (09:30)
[2017-08-30 11:43] VITALS: BP 94/63
== END 2017-08-30 12:26 | disposition home or self-care (01) | DRG 291 ==
LOC: N.LAB 17:00 → EDSTATUS 17:00 → N.TELEN 17:08
PROVIDERS: ADMIT Internal Medicine Cardiovascular Disease; ATTEND Internal Medicine Cardiovascular Disease